=== PATIENT | male | born 1975 | race Caucasian/White ===

== ENCOUNTER 2021-03-22 06:57 | Emergency (ER) | payer SELFPAY ==
[~2021-03-22] VITALS: Ht 167.6 cm; Wt 72.2 kg
--- NOTE | 2021-03-22 07:36 | NUR ---
FIRST CONTACT: PT W/ C/O 02/22 RUQ AND RLQ ABD PAIN STARTING LAST NIGHT AT 1800. DENIES N/V/D. PT TO ROOM WITH STEADY GAIT. POSTIONED TO COMFORT IN BED AND ATTACHED TO MONITORS. FIFI. ROB. SAVANNA EWING TO BEDSIDE FOR EVALUATION.
[2021-03-22] MEDS ORDERED: MORPHINE SULFATE 4 MG/ML, 1ML ONE ×2 (07:43→08:41)
[2021-03-22] MEDS ORDERED: ONDANSETRON 2MG/ML, 2ML ONE (07:43)
[2021-03-22] MEDS: MORPHINE SULFATE 4 MG/ML, 1ML IVPush PRN ×2 (07:47→08:43)
--- NOTE | 2021-03-22 07:49 | NUR ---
pt medicated per emar. vss. brayann.
[2021-03-22] MEDS ORDERED: SODIUM CHLORIDE 0.9% 1,000ML IVBOLUS ONE (08:00)
[2021-03-22] MEDS ORDERED: ONDANSETRON 2MG/ML, 2ML IVPush ONE (08:00)
--- NOTE | 2021-03-22 08:14 | NUR ---
US AT BEDSIDE.
[2021-03-22 08:35] LABS: BASOPHILS % (AUTO) 1 % (0-1); EOSINOPHILS % (AUTO) 3 % (1-7); LYMPHOCYTES % (AUTO) 42 % (22-44); MEAN PLATELET VOLUME 8.3 fL (7.4-10.4); MONOCYTES % (AUTO) 9 % (2-9); NEUTROPHILS % (AUTO) 45 % (42-75); PLATELET COUNT 230 x10^3/uL (130-400); RED BLOOD COUNT 4.75 x10^6/uL (4.38-5.82); RED CELL DISTRIBUTION WIDTH 12.7 % (9.4-14.8)
[2021-03-22 08:37] LABS: ALANINE AMINOTRANSFERASE 198 U/L (12-78); ALBUMIN 4.1 g/dL (3.4-5.0); ANION GAP 6 mmol/L (5-15); CALCIUM 9.2 mg/dL (8.5-10.1); CHLORIDE 107 mmol/L (98-107); CREATININE 0.81 mg/dL (0.7-1.3)
[2021-03-22 08:39] LABS: ALKALINE PHOSPHATASE 211 U/L (45-117); BILIRUBIN,TOTAL 1.5 mg/dL (0.2-1.0); TOTAL PROTEIN 8.3 g/dL (6.4-8.2)
--- NOTE | 2021-03-22 08:44 | NUR ---
pt medicated per emar for 6/10 abd pain. vss. pt asked for ua sample x2. pt states " i can't quite go yet" will attempt later.
--- NOTE | 2021-03-22 09:29 | NUR ---
PT RESTING IN BED. UA SENT. VSS. RIVAS.
[2021-03-22 09:33] LABS: MICROSCOPIC NOT IND
--- NOTE | 2021-03-22 10:17 | NUR ---
PT TO CT
[2021-03-22] MEDS ORDERED: OMNIPAQUE 350 MG/ML, 100ML BOTTLE ONE (10:30)
--- NOTE | 2021-03-22 10:44 | NUR ---
PT RESTING IN BED. VSS. UP FOR RECHECK.
[2021-03-22 11:24] VITALS: BP 99/66
--- NOTE | 2021-03-22 11:25 | NUR ---
Patient given discharge instructions and they have confirmed that they understand the instructions. Patient ambulatory with steady gait. NAD, all questions answered appropriately, denies additional needs at this time. No personal belongings left in room after discharge.
== END 2021-03-22 11:39 | disposition home or self-care (01) ==
LOC: ED 11:30
DX: R10.11 Right upper quadrant pain (principal); R74.01 Elevation of levels of liver transaminase levels
CPT/HCPCS: 36415; 74177; 76705; 80053; 80074; 81003; 82977; 83690; 85025; 96374; 96375; 96376; 99285; J2270; J2405; J7030; Q9967